=== PATIENT | female | born 1980 | race Caucasian/White ===

== ENCOUNTER 2017-01-17 06:14 | Day surgery (SDC) | payer MEDICAID, OTHER ==
[2017-01-16 11:07] VITALS: BMI 30.5
[~2017-01-17] VITALS: Ht 160 cm; Wt 76.0 kg
[2017-01-17] VITALS (12 sets, daily range): BP systolic 98–120; BP diastolic 47–60; PULSE 52–84; RESP 15–24; Ht 160 cm; Wt 76.0 kg
[~2017-01-17 06:14] MED LIST: PREN-39 PO
[2017-01-17] MEDS ORDERED: BUPIVACAINE 0.5%/EPI (SDV) 30 ML INJ ONE (09:11)
[2017-01-17] MEDS ORDERED: PROPOFOL 20 ML ONE (09:16)
[2017-01-17] MEDS ORDERED: ROCURONIUM 50 MG INJ ONE (09:16)
[2017-01-17] MEDS ORDERED: ROPIVACAINE 0.5 % 30 ML VIAL ONE (09:16)
[2017-01-17] MEDS ORDERED: METOCLOPRAMIDE 10 MG INJ ONE (09:16)
[2017-01-17] MEDS ORDERED: ONDANSETRON 4 MG INJ ONE (09:16)
[2017-01-17] MEDS ORDERED: MIDAZOLAM 1 MG/ML 2 ML INJ ONE (09:16)
[2017-01-17] MEDS ORDERED: CEFAZOLIN 1 GM INJ ONE (09:42)
[2017-01-17] MEDS ORDERED: KETOROLAC 30 MG INJ ONE (10:01)
[2017-01-17] MEDS ORDERED: GLYCOPYRROLATE 0.4 MG INJ ONE (10:01)
[2017-01-17] MEDS ORDERED: NEOSTIGMINE 3 MG/3 ML SYRINGE ONE (10:01)
[2017-01-17] MEDS ORDERED: EPHEDrine SULFATE 50 MG/5 ML SYG ONE (10:20)
[2017-01-17] MEDS ORDERED: DIPHENHYDRAMINE 50 MG INJ IV PRN (10:30)
[2017-01-17] MEDS ORDERED: morphine (1 MG/ML) 10ML SYRINGE IV PRN ×2 (10:30)
[2017-01-17] MEDS ORDERED: ONDANSETRON 4 MG INJ IV PRN ×2 (10:30→11:30)
[2017-01-17] MEDS: morphine (1 MG/ML) 10ML SYRINGE IV PRN ×2 (10:58→11:04)
--- NOTE | 2017-01-17 11:06 | SIPON ---
Date/Time of Note Date/Time of Note DATE: 01/17/17 TIME: 11:04 Operative Report Preoperative Diagnosis Voluntary sterilization Postoperative Diagnosis Same Operation/Procedure Performed Minilaparotomy BTL Surgeon Raquel Hills MD bookkeeper assistant chief medical technologist Anesthesia: general Estimated blood loss: minimal Transfusion Required none Specimen right and left Fallopian tubes Grafts/Implants none Complications none RAQUEL HILLS MD Jan 17, 2017 11:06
--- NOTE | 2017-01-17 11:06 | SIPON ---
Date/Time of Note Date/Time of Note DATE: 01/17/17 TIME: 11:04 Operative Report Preoperative Diagnosis Voluntary sterilization Postoperative Diagnosis Same Operation/Procedure Performed Minilaparotomy BTL Surgeon Raquel Hills MD assistant activities director budget technician Anesthesia: general Estimated blood loss: minimal Transfusion Required none Specimen right and left Fallopian tubes Grafts/Implants none Complications none RAQUEL HILLS MD Jan 17, 2017 11:06
--- NOTE | 2017-01-17 11:06 | SIPON ---
Date/Time of Note Date/Time of Note DATE: 01/17/17 TIME: 11:04 Operative Report Preoperative Diagnosis Voluntary sterilization Postoperative Diagnosis Same Operation/Procedure Performed Minilaparotomy BTL Surgeon Raquel Hills MD commercial real estate assistant electromechanical technologist Anesthesia: general Estimated blood loss: minimal Transfusion Required none Specimen right and left Fallopian tubes Grafts/Implants none Complications none RAQUEL HILLS MD Jan 17, 2017 11:06
[2017-01-17] MEDS ORDERED: KETOROLAC 30 MG INJ IV PRN (11:30)
[2017-01-17] MEDS ORDERED: HYDROCODONE/APAP (5/325) TAB PO PRN (11:30)
[2017-01-17] MEDS ORDERED: morphine 2 MG INJ IV PRN (11:30)
--- NOTE | 2017-01-17 11:33 | PREOPHP ---
DATE OF ADMISSION: 01/17/2017 HISTORY OF PRESENT ILLNESS: A 36-year-old female 5, para 5, last menstrual period about 2 y ears prior to admission with history of breast feeding, is admitted for voluntary sterilization. PAST MEDICAL HISTORY: Unremarkable. PAST SURGICAL HISTORY: Unremarkable. FAMILY HISTORY: Noncontributory. ALLERGIES: NO KNOWN ALLERGIES. PHYSICAL EXAMINATION: VITAL SIGNS: Patient is afebrile. Vital signs stable. HEAD, NECK AND CHEST: Within normal limits. ABDOMEN: Soft, nontender, nondistended. PELVIC: Normal. EXTREMITIES: Within normal limits. NEUROLOGIC: Within normal limits. IMPRESSION: Voluntary sterilization. PLAN: Minilaparotomy, bilateral tubal ligation. Risks, benefits and alternatives of the procedure were explained to the patient. The patient has been counseled about all of her contraceptive option s including all methods of sterilization. It was explained to the patient that with bilateral tubal ligation there is a chance of failure resulting in ectopic and/or intrauterine . After counseling, the patient said she understood and gave informed consent for the procedure. Dictated By: RAQUEL VILLARREAL/GILBERTO Conf#: [id number] DID#: [id number]
--- NOTE | 2017-01-17 11:37 | OPR ---
DATE OF OPERATION: 01/17/2017 PREOPERATIVE DIAGNOSIS: Voluntary sterilization. POSTOPERATIVE DIAGNOSIS: Voluntary sterilization. OPERATION PERFORMED: Minilaparotomy, bilateral tubal ligation. SURGEON: Raquel Andrew MD. SERVICE SECRETARY: video game technician. ANESTHESIA: General. ANESTHESIOLOGIST: Dr. Walter. DESCRIPTION OF PROCEDURE: Patient was taken to operating room and placed on the operating table. A fter adequate general anesthesia was given, the area was prepared and draped in the usual sterile fa shion. Using a scalpel, a Pfannenstiel incision was made about 2 fingerbreadths above the symphysis pubis. The incision was carried down to the fascia. The fascia was incised and extended bilaterally with Bovie. Two Nevaeh's were used to separate the fascia from the muscle. The muscle was dissected in midline down to peritoneum. The peritoneum was secured with 2 Kellys and incised with Metzenbaum sc issors. Upon entering the peritoneal cavity, the right fallopian tube was grasped with a [place] cl amp and followed to its fimbrial end to confirm its identity. Using 0 plain suture ligature, a 5 cm segment of the right fallopian tube was doubly ligated. Using Metzenbaum scissors, a portion of th e right fallopian tube over the ligated area was excised and sent to pathology. The same procedure was repeated on the left fallopian tube. After assuring hemostasis, the peritoneum was closed with 2-0 chromic. The fascia was closed with 0 Vicryl continuous. Subcutaneous tissue was reapproximate d with 0 chromic. Skin was closed with nelli. ESTIMATED BLOOD LOSS: Minimal. COUNTS: All counts were correct. Dictated By: RAQUEL VILLARREAL/GILBERTO Conf#: [id number] DID#: [id number]
--- NOTE | 2017-01-17 11:37 | OPR ---
DATE OF OPERATION: 01/17/2017 PREOPERATIVE DIAGNOSIS: Voluntary sterilization. POSTOPERATIVE DIAGNOSIS: Voluntary sterilization. OPERATION PERFORMED: Minilaparotomy, bilateral tubal ligation. SURGEON: Raquel Andrew MD. DEBRIDGING MACHINE OPERATOR: technician support engineer. ANESTHESIA: General. ANESTHESIOLOGIST: Dr. Walter. DESCRIPTION OF PROCEDURE: Patient was taken to operating room and placed on the operating table. A fter adequate general anesthesia was given, the area was prepared and draped in the usual sterile fa shion. Using a scalpel, a Pfannenstiel incision was made about 2 fingerbreadths above the symphysis pubis. The incision was carried down to the fascia. The fascia was incised and extended bilaterally with Bovie. Two Nevaeh's were used to separate the fascia from the muscle. The muscle was dissected in midline down to peritoneum. The peritoneum was secured with 2 Kellys and incised with Metzenbaum sc issors. Upon entering the peritoneal cavity, the right fallopian tube was grasped with a [place] cl amp and followed to its fimbrial end to confirm its identity. Using 0 plain suture ligature, a 5 cm segment of the right fallopian tube was doubly ligated. Using Metzenbaum scissors, a portion of th e right fallopian tube over the ligated area was excised and sent to pathology. The same procedure was repeated on the left fallopian tube. After assuring hemostasis, the peritoneum was closed with 2-0 chromic. The fascia was closed with 0 Vicryl continuous. Subcutaneous tissue was reapproximate d with 0 chromic. Skin was closed with nelli. ESTIMATED BLOOD LOSS: Minimal. COUNTS: All counts were correct. Dictated By: RAQUEL VILLARREAL/GILBERTO Conf#: [id number] DID#: [id number]
--- NOTE | 2017-01-17 11:37 | OPR ---
DATE OF OPERATION: 01/17/2017 PREOPERATIVE DIAGNOSIS: Voluntary sterilization. POSTOPERATIVE DIAGNOSIS: Voluntary sterilization. OPERATION PERFORMED: Minilaparotomy, bilateral tubal ligation. SURGEON: Raquel Andrew MD. INSURANCE LOSS CONTROL SURVEYOR: information technology instructor. ANESTHESIA: General. ANESTHESIOLOGIST: Dr. Walter. DESCRIPTION OF PROCEDURE: Patient was taken to operating room and placed on the operating table. A fter adequate general anesthesia was given, the area was prepared and draped in the usual sterile fa shion. Using a scalpel, a Pfannenstiel incision was made about 2 fingerbreadths above the symphysis pubis. The incision was carried down to the fascia. The fascia was incised and extended bilaterally with Bovie. Two Nevaeh's were used to separate the fascia from the muscle. The muscle was dissected in midline down to peritoneum. The peritoneum was secured with 2 Kellys and incised with Metzenbaum sc issors. Upon entering the peritoneal cavity, the right fallopian tube was grasped with a [place] cl amp and followed to its fimbrial end to confirm its identity. Using 0 plain suture ligature, a 5 cm segment of the right fallopian tube was doubly ligated. Using Metzenbaum scissors, a portion of th e right fallopian tube over the ligated area was excised and sent to pathology. The same procedure was repeated on the left fallopian tube. After assuring hemostasis, the peritoneum was closed with 2-0 chromic. The fascia was closed with 0 Vicryl continuous. Subcutaneous tissue was reapproximate d with 0 chromic. Skin was closed with nelli. ESTIMATED BLOOD LOSS: Minimal. COUNTS: All counts were correct. Dictated By: RAQUEL VILLARREAL/GILBERTO Conf#: [id number] DID#: [id number]
== END 2017-01-17 12:24 | disposition home or self-care (01) ==
LOC: SDS 06:14
PROVIDERS: ATTEND Obstetrics & Gynecology
DX: Z30.2 Encounter for sterilization (principal)
CPT/HCPCS: 58600; 84703; 85025; 88302; J0690; J1885; J2250; J2270; J2405; J2710; J2765; J2795

== ENCOUNTER 2018-03-14 16:33 | Emergency (ER) | END 2018-03-14 20:21 | disposition home or self-care (01) ==